=== PATIENT | female | born 1990 | race Caucasian/White ===

== ENCOUNTER 2017-11-01 04:10 | Inpatient (IN) | payer OTHER, MEDICAID ==
[2017-11-01] MEDS ORDERED: BETAMET ACET/BETAMET NA INJ 6 MG/1 ML ONE ×2 (04:55→04:57)
[2017-11-01] MEDS ORDERED: MAGNESIUM SULFATE 0 GM/0 ML RTUPB IV ONE (05:00)
[2017-11-01] MEDS ORDERED: BETAMET ACET/BETAMET NA INJ 6 MG/1 ML IM ONE (05:01)
[2017-11-01] MEDS ORDERED: AMPICILLIN SOD INJ 2 GM VIAL ONE (05:01)
[2017-11-01] MEDS ORDERED: MAGNESIUM SULFATE 20 GM/500 ML RTUINJ IV ONE (05:01)
[2017-11-01] MEDS ORDERED: AMPICILLIN SOD INJ 2 GM VIAL IM ONE (05:03)
[2017-11-01] MEDS ORDERED: ERYTHROMYCIN INJ 500 MG VIAL IV ONE (05:08)
[2017-11-01] MEDS ORDERED: MAGNESIUM SULFATE 20 GM/500 ML RTUINJ IV PRN (05:09)
[2017-11-01 05:15] LABS: AMNISURE (ROM) POSITIVE (NEGATIVE)
[2017-11-01] MEDS ORDERED: ERYTHROMYCIN LACTOBIONATE 500 MG in NORMAL SALINE 100 ML IV ONE (05:15)
[2017-11-01] MEDS ORDERED: RINGERS SOLUTION,LACTATED 1,000 ML IV ONE (05:16)
[2017-11-01] MEDS ORDERED: RINGERS SOLUTION,LACTATED 1,000 ML IV PRN (05:16)
[2017-11-01 05:22] LABS: APPEARANCE,URINE SLIGHTLY-CLOUDY; BILIRUBIN,URINE NEGATIVE (NEGATIVE); GLUCOSE, URINE NEGATIVE (NEGATIVE); KETONES,URINE NEGATIVE (NEGATIVE); LEUKOCYTE ESTERASE,URINE LARGE (NEGATIVE); NITRITE,URINE NEGATIVE (NEGATIVE); PROTEIN,URINE NEGATIVE (NEGATIVE); URINE SPECIFIC GRAVITY 1.009; UROBILINOGEN,URINE NEGATIVE mg/dL (<2.0)
[2017-11-01 05:23] LABS: COLOR,URINE YELLOW
[2017-11-01 05:37] LABS: URINE AMPHETAMINES SCREEN NEGATIVE; URINE BARBITURATES SCREEN NEGATIVE; URINE BENZODIAZEPINES SCREEN NEGATIVE; URINE COCAINE SCREEN NEGATIVE; URINE MARIJUANA (THC) SCREEN NEGATIVE; URINE METHADONE SCREEN NEGATIVE; URINE PHENCYCLIDINE SCREEN NEGATIVE
[2017-11-01 05:44] LABS: ABSOLUTE LYMPHOCYTES (AUTO) 1.4 10^3/uL (0.5-4.7); ABSOLUTE MONOCYTES (AUTO) 0.9 10^3/uL (0.1-1.4); ABSOLUTE NEUT (AUTO) 8.4 10^3/uL (1.7-8.2); BASOPHILS % (AUTO) 0.1 % (0-2); EOSINOPHILS % (AUTO) 0.2 % (0-6); HEMATOCRIT 28.7 % (36.0-47.0); LYMPHOCYTES % (AUTO) 12.8 % (13-45); MEAN CORPUSCULAR HEMOGLOBIN 30.3 pg (27.0-33.4); MEAN CORPUSCULAR HGB CONC 34.8 g/dL (32.0-36.0); MEAN CORPUSCULAR VOLUME 87 fl (80-97); PLATELET COUNT 117 10^3/uL (150-450); RED BLOOD COUNT 3.29 10^6/uL (3.72-5.28); RED CELL DISTRIBUTION WIDTH 13.8 % (11.5-14.0); SEGMENTED NEUTROPHILS % (AUTO) 78.9 % (42-78); TOTAL CELLS COUNTED % (AUTO) 100 %; WHITE BLOOD COUNT 10.7 10^3/uL (4.0-10.5)
[2017-11-01] MEDS ORDERED: ERYTHROMYCIN BASE 250 MG TABLET PO ONE (05:50)
[2017-11-01] MEDS ORDERED: ONDANSETRON HCL INJ/PF 4 MG/2 ML SDV ONE ×2 (05:51→05:56)
[2017-11-01] MEDS ORDERED: ONDANSETRON HCL INJ/PF 4 MG/2 ML SDV IV ONE (05:54)
--- NOTE | 2017-11-01 06:34 | PDOC TRANSFER SUMMARY ---
General Admission Date/PCP: 11/01/17 05:20 Noelle Donahue MD Admission Date: 11/01/17 Transfer Date: 11/01/17 Accepting Facility: [facility] Accepting Physician: Dr. Shelby Brenner Resuscitation Status: Full Code - Transfer Diagnosis (1) Incompetence of cervix Is this a current diagnosis for this admission?: Yes Diagnosis Summary: Telescoping membranes into vagina. Asymptomatic. Reviewed risk of transfer and reviewed risk of delivery at [facility]. Pt strongly desires transfer to tertiary facility and all measures done if possible. Reviewed need for cerclage with next due to incompetent cervix. Infant per US this am is transverse with head on maternal right, minimal cervix remaining with NO parts in cervix or membranes, 512grams per growth, FHR 140s. NO contractions felt by patient and no contractions on toco. (2) premature rupture of membranes Is this a current diagnosis for this admission?: Yes Diagnosis Summary: Pt reports leaking began at approximately 0245. On exam bulging membranes noted , unable to evaluate cervical dilation. IV Ampicillin 2 grams given and Erythromycin po 500mg given (no IV Erythro in hospital) initiated. Labs ordered. Fern and amnisure positive. The risks/benefits/alternatives to transfer reviewed with patient and patient desires to transfer. Transfer and accepting physician arranged. - Transfer Medications Home Medications: Vit/Iron Fum/Folic AC [ Tablet] 1 tab PO DAILY 11/01/17 Transfer Medications: Current Medications Erythromycin Lactobionate 500 (mg/ Sodium Chloride) 100 mls @ 100 mls/hr IV NOW ONE Stop: 11/01/17 06:14 Magnesium Sulfate (Magnesium Sulfate Rtu 20 Gm/500 Ml Premix) 20 gm in 500 mls @ 0 mls/hr IV CONTINUOUS PRN; As Directed PRN Reason: THIS MED IS NOT "PRN" Stop: 12/01/17 05:08 Lactated Ringer's (Lactated Ringers 1000 Ml Iv Soln) 1,000 mls @ 125 mls/hr IV CONTINUOUS PRN PRN Reason: THIS MED IS NOT "PRN" Stop: 12/01/17 05:15 - Allergies Allergies/Adverse Reactions: No Known Allergies Allergy (Unverified 11/01/17 05:08) - Diet/Activity Discharge Diet: As Tolerated Discharge Activity: Bedrest, Other - trendelenburg Hospital Course Hospital Course: 27yo at 23+5ega with FELI 02/23/2018 presents with c/o leaking of fluid at 0245 (clear fluid). NO contractions only c/o constipation for the last week. Exam performed - concern for PPROM, Amnisure and fern done. Only membranes noted in vagina - no parts visualized. US ordered - see verbal report in dx section. Reviewed need for transport if stable and patient desires all measures available. Transport arranged - Mag/Ampicillin/Erythro and BMZ given. Physical Exam General appearance: PRESENT: no acute distress, well-developed, well-nourished Head exam: PRESENT: atraumatic, normocephalic Respiratory exam: PRESENT: clear to auscultation fernando. ABSENT: rales, rhonchi, wheezes Cardiovascular exam: PRESENT: RRR. ABSENT: diastolic murmur, rubs, systolic murmur Pulses: PRESENT: normal dorsalis pedis pul GI/Abdominal exam: PRESENT: normal bowel sounds, soft. ABSENT: distended, guarding, mass, organolmegaly, rebound, tenderness Rectal exam: PRESENT: deferred Gentrourinary exam: PRESENT: other - telescoping membranes Extremities exam: PRESENT: full ROM. ABSENT: calf tenderness, clubbing, pedal edema Neurological exam: PRESENT: alert, awake, oriented to person, oriented to place , oriented to time, oriented to situation, CN II-XII grossly intact. ABSENT: motor sensory deficit Psychiatric exam: PRESENT: appropriate affect, normal mood, other - appropriately upset. ABSENT: homicidal ideation, suicidal ideation Skin exam: PRESENT: dry, intact, warm. ABSENT: cyanosis, rash Results Laboratory Results: 11/01/17 04:30 Urine Color YELLOW Urine Appearance SLIGHTLY-CLOUDY Urine pH 6.0 Ur Specific Tyner 1.009 Urine Protein NEGATIVE Urine Glucose (UA) NEGATIVE Urine Ketones NEGATIVE Urine Blood NEGATIVE Urine Nitrite NEGATIVE Ur Leukocyte Esterase LARGE H Urine WBC (Auto) 19 Urine RBC (Auto) 2 Plan Discharge Plan: Transfer to [facility]
--- NOTE | 2017-11-01 06:52 | RADIOLOGY REPORT (SQ) ---
EXAM DESCRIPTION: U/S OB LIMITED CLINICAL HISTORY: 27 years Female, telescoping membranes, cvx left?, fluid, growth COMPARISON: None. TECHNIQUE: Limited second/third trimester obstetrical ultrasound. FINDINGS: Single intrauterine identified. heart rate: 149 beats for minute. MIRIAM: 19.1 cm Placenta: Posterior Presentation: Transverse. Cervix: There is telescoping/funneling of the cervix with fluid entering the cervical canal. The cervical with is 3.2 cm. By my measurements the residual cervix measures 1.0 cm in closed length. measurements: BPD: 5.5 cm compatible estimated gestational age of 23 weeks, 0 days. HC: 21.84 compatible an estimated gestational age of 23 weeks, 6 days. A.C 16.50 compatible with an estimated gestational age of 20 weeks, 4 days. FL: Compatible with an estimated gestational age of 23 weeks, 3 days. HL: 3.89 compatible with an estimated gestational age of 23 weeks, 6 days. Estimated weight of 512 g, percentile of 26% Estimated gestational age by ultrasound of 23 weeks, 1 day. Estimated delivery date of 02/27/2018. IMPRESSION: 1. Telescoping/funneling of the cervix. Amniotic fluid is visualized within the cervix and the amniotic fluid filled portion of the cervix measures 3.2 cm in width. The residual closed cervical length is 1.0 cm. Obstetrical consultation recommended. 2. Single live intrauterine with estimated gestational age of 20 weeks, 1 day. heart rate of 149 beats for minute.
== END 2017-11-01 07:53 | disposition short-term general hospital (02) | DRG 782 ==
LOC: LC 04:10 → LR 05:20
PROVIDERS: ADMIT Student in an Organized Health Care Education/Training Program; ATTEND Student in an Organized Health Care Education/Training Program
PROC: 4A1HXCZ Monitoring of Products of Conception, Cardiac Rate, External Approach (ICD-10-PCS; principal; 2017-11-01)
DX: O34.32 Maternal care for cervical incompetence, second trimester (principal); O42.912 Preterm premature rupture of membranes, unspecified as to length of time between rupture and onset of labor, second trimester; Z3A.23 23 weeks gestation of pregnancy
CPT/HCPCS: 36415; 76815; 80307; 81001; 84112; 85025; 86592; 86850; 86900; 86901; 94760; 96372; J0290; J0702; J1364; J2405; J3475; J3490; Q0114